=== PATIENT | female | born 1950 | race Caucasian/White ===

== ENCOUNTER 2020-05-27 08:39 | Outpatient (REF) | payer MEDICARE, SELFPAY ==
[2020-05-27 14:09] LABS: Calculated LDL 133 mg/dL (<100); Cholesterol 204 mg/dL (<200); HDL Cholesterol 50 mg/dL (40-60); Triglyceride 107 mg/dL (<150)
[2020-05-27 15:26] LABS: Hemoglobin A1C 5.6 % (<5.7)
== END 2020-05-27 08:40 | disposition home or self-care (01) ==
LOC: NCHCN 08:39
PROVIDERS: Visit Provider Registered Nurse
DX: E78.5 Hyperlipidemia, unspecified (principal)
CPT/HCPCS: 80061; 83036

== ENCOUNTER 2022-06-15 16:15 | Outpatient (REF) | payer MEDICARE, SELFPAY ==
[2022-06-15 15:25] LABS: Anion Gap 6.9 mmol/L (3-11); BUN 13 mg/dL (7-18); CO2 28.1 mmol/L (21.0-32.0); CREATININE 0.8 mg/dL (0.55-1.02); Calcium 8.7 mg/dL (8.5-10.1); Chloride 106 mmol/L (98-107); Estimated GFR 77.75 (mL/min/1.73m2); Glucose 89 mg/dL (74-106); Potassium 4.3 mmol/L (3.5-5.1); Sodium 141 mmol/L (136-145)
== END 2022-06-15 16:16 | disposition home or self-care (01) ==
LOC: NCHCN 16:15
PROVIDERS: PCP Registered Nurse; Visit Provider Registered Nurse
DX: R07.9 Chest pain, unspecified (principal)
CPT/HCPCS: 80048

== ENCOUNTER 2023-03-20 13:30 | Outpatient (REF) | payer MEDICARE, SELFPAY ==
--- OUTSIDE RECORDS SUMMARY | 2023-03-20 13:46 | XMS_ITS | CCD ---
Author Name Unknown Address [address] [place] [address] [id number] Organization Unknown Address [address] [place] [address] [phone] Care Team Providers Care Engineering Recruiter Name Role Phone LINDA BIRD Attending Physician [phone] Vital Signs Unknown or Not Available. Allergies Unknown or Not Available. Procedures Unknown or Not Available. History of Immunizations Unknown or Not Available. Problems Unknown or Not Available. Results Unknown or Not Available. Active Medications Unknown or Not Available. Medications Administered During Visit Unknown or Not Available. Encounters Encounter Diagnosis Diagnosis Code Start Date Other nonspecific abnormal finding of lung field [id number] 10/18/2020 Social History Smoking Status Code Start Date End Date Never smoker [id number] Patient Decision Aids Unknown or Not Available. Discharge Instructions You were admitted to [facility] 01 on 10/18/2020 09:00 with a principal diagnosis of Other nonspecific abnormal finding of lung field You were discharged from [facility] 01 on 10/18/2020 09:00 Should you have any questions prior to discharge, please contact a member of your healthcare team. If you have left the hospital and have any questions, please contact your primary care physician. Chief Complaint and Reason For Visit Unknown or Not Available. Function Status Unknown or Not Available. Plan of Care Unknown or Not Available. Referral/Transition of Care Unknown or Not Available.
--- OUTSIDE RECORDS SUMMARY | 2023-03-20 13:47 | XMS_ITS | CCD ---
Author Name Unknown Address [address] [place] [address] [id number] Organization Unknown Address [address] [place] [address] [phone] Care Team Providers Care Medical Biller/Coder Name Role Phone DILLON PALM Attending Physician [phone] Vital Signs Unknown or Not Available. Allergies Unknown or Not Available. Procedures Unknown or Not Available. History of Immunizations Unknown or Not Available. Problems Unknown or Not Available. Results Unknown or Not Available. Active Medications Unknown or Not Available. Medications Administered During Visit Unknown or Not Available. Encounters Encounter Diagnosis Diagnosis Code Start Date Asymptomatic menopausal state [id number] Social History Smoking Status Code Start Date End Date Never smoker [id number] Patient Decision Aids Unknown or Not Available. Discharge Instructions You were admitted to [facility] on 07/06/2021 14:14 with a principal diagnosis of Asymptomatic menopausal state You were discharged from [facility] on 07/06/2021 14:14 Should you have any questions prior to discharge, please contact a member of your healthcare team. If you have left the hospital and have any questions, please contact your primary care physician. Chief Complaint and Reason For Visit Chief Complaint Date of Onset OSTEOPENIA POSTMENOPAUSAL Function Status Unknown or Not Available. Plan of Care Unknown or Not Available. Referral/Transition of Care Unknown or Not Available.
--- OUTSIDE RECORDS SUMMARY | 2023-03-20 13:47 | XMS_ITS | CCD ---
Author Name Unknown Address [address] [place] [address] [phone] Organization Unknown Address [address] [place] [address] [phone] Care Team Providers Care Gas Processing Plant Operator Name Role Phone DILLON PALM Attending Physician [phone] Vital Signs Unknown or Not Available. Allergies Unknown or Not Available. Procedures Unknown or Not Available. History of Immunizations Unknown or Not Available. Problems Unknown or Not Available. Results Unknown or Not Available. Active Medications Unknown or Not Available. Medications Administered During Visit Unknown or Not Available. Encounters Encounter Diagnosis Diagnosis Code Start Date Screening mammography [id number] 05/04/2021 Social History Smoking Status Code Start Date End Date Never smoker [id number] Patient Decision Aids Unknown or Not Available. Discharge Instructions You were admitted to [facility] on 05/04/2021 14:34 with a principal diagnosis of Encounter for screening mammogram for malignant neoplasm of breast You were discharged from [facility] on 05/04/2021 14:34 Should you have any questions prior to discharge, please contact a member of your healthcare team. If you have left the hospital and have any questions, please contact your primary care physician. Chief Complaint and Reason For Visit Chief Complaint Date of Onset SCREENING Function Status Unknown or Not Available. Plan of Care Unknown or Not Available. Referral/Transition of Care Unknown or Not Available.
[2023-03-20 14:28] LABS: Absolute Basophil Count 0.02 10^3/uL (0.0-0.2); Absolute Eosinophil Count 0.02 10^3/uL (0.0-0.7); Absolute Lymphocyte Count 0.72 10^3/uL (1.2-3.4); Absolute Monocyte Count 1.48 10^3/uL (0.1-0.8); Absolute Neutrophil Count 3.02 10^3/uL (1.2-6.7); Basophils % 0.4; Eosinophils % 0.4; HCT 40.9 % (36.0-46.0); HGB 13.9 g/dL (11.2-15.7); Immature Grans % 1.9; Lymphocytes % 13.4; MCH 29.6 pg (27.0-33.0); MCV 87 fL (80-95); Monocytes % 27.6; Neutrophils % 56.3; Platelet Count 142 10^3/uL (130-400); RBC 4.69 10^6/uL (3.93-5.22); RDW 13.8 % (11.7-14.6); RDW-SD 44.2 fL; WBC 5.36 10^3/uL (4.4-10.8)
[2023-03-20 14:46] LABS: PTT Activated 30.3 sec (23.6-32.8); Prothrombin Time 10.3 sec (9.1-11.1)
[2023-03-20 14:47] LABS: ALT 23 U/L (14-59); AST 13 U/L (15-37); Albumin 3.7 g/dL (3.4-5.0); Alkaline Phosphatase 74 U/L (46-116); Bilirubin, Direct 0.1 mg/dL (0.0-0.2); Bilirubin, Total 0.5 mg/dL (0.2-1.0); Total Protein 7.1 g/dL (6.4-8.2)
== END 2023-03-20 13:31 | disposition home or self-care (01) ==
LOC: NCHCN 13:30
PROVIDERS: PCP Registered Nurse; Visit Provider Physician Assistant
DX: H57.89 Other specified disorders of eye and adnexa (principal)
CPT/HCPCS: 80076; 85025; 85610; 85730

== ENCOUNTER 2023-05-14 08:44 | Outpatient (REF) | payer MEDICARE, SELFPAY ==
[2023-05-14 14:32] LABS: Abs Immature Grans 0.05 10^3/uL (0.0-0.06); Absolute Basophil Count 0.02 10^3/uL (0.0-0.2); Absolute Eosinophil Count 0.02 10^3/uL (0.0-0.7); Absolute Lymphocyte Count 0.91 10^3/uL (1.2-3.4); Absolute Monocyte Count 1.47 10^3/uL (0.1-0.8); Basophils % 0.4; Eosinophils % 0.4; HCT 41.8 % (36.0-46.0); HGB 13.9 g/dL (11.2-15.7); Lymphocytes % 19.1; MCHC 33.3 % (32.0-36.0); MCV 87 fL (80-95); MPV 10.9 fL (8.0-11.0); Monocytes % 30.8; Neutrophils % 48.3; Platelet Count 146 10^3/uL (130-400); RDW 13.4 % (11.7-14.6); RDW-SD 43.1 fL; WBC 4.77 10^3/uL (4.4-10.8)
== END 2023-05-14 08:45 | disposition home or self-care (01) ==
LOC: NCHCN 08:44
PROVIDERS: PCP Registered Nurse; Referring Provider Physician Assistant; Visit Provider Physician Assistant
DX: D72.89 Other specified disorders of white blood cells (principal)
CPT/HCPCS: 85025

== ENCOUNTER 2023-06-19 11:23 | Outpatient (REF) | payer MEDICARE, SELFPAY ==
[2023-06-19 16:21] LABS: Abs Immature Grans 0.05 10^3/uL (0.0-0.06); Absolute Basophil Count 0.02 10^3/uL (0.0-0.2); Absolute Eosinophil Count 0.02 10^3/uL (0.0-0.7); Absolute Lymphocyte Count 0.88 10^3/uL (1.2-3.4); Absolute Monocyte Count 1.41 10^3/uL (0.1-0.8); Absolute Neutrophil Count 2.38 10^3/uL (1.2-6.7); Basophils % 0.4; Eosinophils % 0.4; HCT 44.7 % (36.0-46.0); HGB 14.5 g/dL (11.2-15.7); Immature Grans % 1.1; Lymphocytes % 18.5; MCHC 32.4 % (32.0-36.0); MCV 89 fL (80-95); MPV 11.3 fL (8.0-11.0); Monocytes % 29.6; Platelet Count 141 10^3/uL (130-400); RDW 13.9 % (11.7-14.6); RDW-SD 45.1 fL; WBC 4.76 10^3/uL (4.4-10.8)
[2023-06-19 16:39] LABS: Hemoglobin A1C 5.6 % (<5.7)
[2023-06-19 17:15] LABS: ALT 19 U/L (14-59); AST 14 U/L (15-37); Alkaline Phosphatase 85 U/L (46-116); Anion Gap 8.6 mmol/L (3-11); BUN 12 mg/dL (7-18); Bilirubin, Total 0.8 mg/dL (0.2-1.0); CO2 27.4 mmol/L (21.0-32.0); CREATININE 0.8 mg/dL (0.55-1.02); Chloride 107 mmol/L (98-107); Estimated GFR 77.27 (mL/min/1.73m2); Glucose 98 mg/dL (74-106); Potassium 4.5 mmol/L (3.5-5.1); Sodium 143 mmol/L (136-145); Total Protein 7.1 g/dL (6.4-8.2); Vitamin B12 324 pg/mL (193-986)
== END 2023-06-19 11:24 | disposition home or self-care (01) ==
LOC: NCHCN 11:23
PROVIDERS: PCP Registered Nurse; Visit Provider Family Medicine
DX: D64.9 Anemia, unspecified (principal)
CPT/HCPCS: 80053; 82607; 83036; 85025

== ENCOUNTER 2023-12-10 18:55 | Outpatient (REF) | payer MEDICARE, SELFPAY ==
[2023-12-10 21:34] LABS: ALT 14 U/L (14-59); AST 19 U/L (15-37); Albumin 3.8 g/dL (3.4-5.0); Alkaline Phosphatase 82 U/L (46-116); Anion Gap 7.4 mmol/L (3-11); BUN 15 mg/dL (7-18); Bilirubin, Total 0.52 mg/dL (0.2-1.0); CO2 27.6 mmol/L (21.0-32.0); CREATININE 0.8 mg/dL (0.55-1.02); Calcium 8.9 mg/dL (8.5-10.1); Chloride 103 mmol/L (98-107); Estimated GFR 76.79 (mL/min/1.73m2); Glucose 92 mg/dL (74-106); HGB 13.9 g/dL (11.2-15.7); MCH 29.4 pg (27.0-33.0); MCHC 33.1 % (32.0-36.0); MCV 89 fL (80-95); MPV 11.3 fL (8.0-11.0); Platelet Count 133 10^3/uL (130-400); Potassium 4.2 mmol/L (3.5-5.1); RBC 4.73 10^6/uL (3.93-5.22); RDW 13.8 % (11.7-14.6); RDW-SD 44.9 fL; Sodium 138 mmol/L (136-145); TSH (W/Ref FT4) 2.11 uIU/mL (0.36-3.74); WBC 6.31 10^3/uL (4.4-10.8)
[2023-12-10 22:33] LABS: Absolute Eosinophil Count 0.06 10^3/uL (0.0-0.7); Absolute Lymphocyte Count 0.88 10^3/uL (1.2-3.4); Absolute Monocyte Count 1.45 10^3/uL (0.1-0.8); Absolute Neutrophil Count 3.91 10^3/uL (1.2-6.7); Atypical Lymphocytes % 4 %; Bands % 2 %
[2023-12-10 22:35] LABS: Diff Comment Manual Differential; RBC Morphology Normal
== END 2023-12-10 18:56 | disposition home or self-care (01) ==
LOC: NCHCN 18:55
PROVIDERS: PCP Registered Nurse; Visit Provider Nurse Practitioner Family
DX: R00.2 Palpitations (principal)
CPT/HCPCS: 80053; 84443; 85025

== ENCOUNTER 2023-12-31 19:44 | Outpatient (REF) | payer MEDICARE, SELFPAY | END 2023-12-31 19:45 | disposition home or self-care (01) | LOC: NCHCN 19:44 | PROVIDERS: PCP Registered Nurse; Visit Provider Family Medicine | DX: R30.0 Dysuria (principal); R82.89 Other abnormal findings on cytological and histological examination of urine | CPT/HCPCS: 87086 ==

== ENCOUNTER 2025-01-11 15:00 | Outpatient (REF) | payer MEDICARE, SELFPAY ==
[2025-01-11 21:59] LABS: Cholesterol 227 mg/dL (<200); HDL Cholesterol 42 mg/dL (>or=50)
== END 2025-01-11 15:01 | disposition home or self-care (01) ==
LOC: NCHCN 15:00
PROVIDERS: PCP Registered Nurse; Visit Provider Family Medicine
DX: E78.5 Hyperlipidemia, unspecified (principal)
CPT/HCPCS: 80061